=== PATIENT | male | born 1995 | race Caucasian/White ===

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

== ENCOUNTER → 2017-07-14 | Outpatient (CLI) | payer OTHER | END | disposition home or self-care (01) | LOC: C.LAB 18:03 → EDBD 18:03 | DX: Z02.83 Encounter for blood-alcohol and blood-drug test (principal) ==

== ENCOUNTER 2019-05-10 14:55 | Inpatient (IN) ==
[2019-05-10] MEDS ORDERED: FAMOTIDINE 40 MG TABLET PO ONE (15:32)
[2019-05-10 16:08] LABS: Basophils # (auto) 0.05 K/uL (0-0.2); Eosinophils # (auto) 0.09 K/uL (0-0.5); Eosinophils % (auto) 1.8 %; Hematocrit (blood only) 41.8 % (42-52); Hemoglobin 14.6 g/dL (14.0-18.0); Immature Granulocytes # (auto) 0.01 K/uL (0.00-0.02); Immature Granulocytes % (auto) 0.2 %; Lymphocytes # (auto) 1.31 K/uL (1.2-3.4); Lymphocytes % (auto) 25.8 %; Mean Corpuscular Hemoglobin 30.9 pg (25-34); Mean Corpuscular Hgb Conc 34.9 g/dL (32-36); Mean Corpuscular Volume 88.6 fL (80-100); Mean Platelet Volume 12.5 fL (7.4-10.4); Monocytes # (auto) 0.37 K/uL (0.11-0.59); Monocytes % (auto) 7.3 %; Neutrophils # (auto) 3.25 K/uL (1.4-6.5); Neutrophils % (auto) 63.9 %; Platelet Count 180 K/uL (130-400); RDW Coefficient of Variation 16.7 % (11.5-14.5); RDW Standard Deviation 54.6 fL (36.4-46.3); Red Blood Count 4.72 M/uL (4.7-6.1); White Blood Count 5.08 K/uL (4.8-10.8)
[2019-05-10 16:35] LABS: Albumin Globulin Ratio 0.8 (0.9-2); Albumin Level 3.3 gm/dl (3.4-5.0); BUN Creatinine Ratio 20.2 (10-20); Bilirubin,Total 15.8 mg/dl (0.2-1); Calcium 9.4 mg/dl (8.5-10.1); Creatinine Clr Calc Pharmacy 117.1 ml/min; Est GFR (African American) 134.1; Est GFR (Non-African American) 115.7; Globulin 4.1 gm/dl (2.5-4.0); Potassium 3.3 mmol/L (3.5-5.1); Total Protein 7.4 gm/dl (6.4-8.2)
[2019-05-10] MEDS ORDERED: DOXEPIN HCL 25 MG CAPSULE PO STA (17:22)
--- NOTE | 2019-05-10 18:38 | Ultrasound Report ---
US liver CLINICAL HISTORY: t bili elevated abnormal liver function tests COMPARISON STUDY: No previous studies for comparison. FINDINGS: Several gallstones are identified within the gallbladder lumen. Mild gallbladder wall thick ening at 4 mm. Common bile duct measures 5 mm. Liver is uniform. Pancreas and right kidney are unremarkable. No evid ence for renal hydronephrosis. IMPRESSION: Multiple gallstones in a gallbladder with a thickened wall. Normal caliber bile ducts. ACT 112: Negative or not required by law. The above report was generated using voice recognition software. It may contain grammatical, syntax or spelling errors. Electronically signed by: Casey Howard M.D. 05/10/2019 6:37 PM
[2019-05-10 19:06] LABS: INR 1.1 (0.9-1.1); Prothrombin Time 10.9 Seconds (9.0-12.0)
[2019-05-10 19:13] LABS: Magnesium 2.2 mg/dl (1.8-2.4)
[2019-05-10 19:22] LABS: Appearance Urine Clear (Clear); Bacteria Urine Automated Negative (Negative); Blood Urine Negative (Negative); Cast Urine Automated 0 /lpf (0-5); Color Urine Dark Yellow; Epithelial Cell Urine Auto 0-5 /lpf (0-5); Glucose Urine UA Negative (Negative); Ketones Urine Negative (Negative); Leukocyte Esterase Urine Trace (Negative); Nitrite Urine Positive (Negative); Protein Urine Negative (Negative); RBC Urine Automated 0-4 /hpf (0-4); Specific Gravity Urine 1.022 (1.000-1.030); Urobilinogen Urine Negative (Negative); WBC Urine Automated 0 /hpf (0-5); pH Urine 6.5 (4.5-7.5)
--- NOTE | 2019-05-10 19:22 | Emergency Department Note ---
Entered by Shaina Godwin acting as a scribe for Khanh Stokes MD History of Present Illness General Chief complaint: Illness Stated complaint: UNEXPLAINED JAUNDICE,ITCHY ALL OVER,WEAKNESS Time Seen by Provider: 05/10/19 15:16 Source: patient History of Present Illness Onset (ago): month(s) 1 Location: face (jaundice appearance ) Radiation: other (entire body ) Pain Consistency: + constant Associated symptoms: + other (itching all over body, light colored stool, dark urine); no cough, no fever/chills and no nausea/vomiting Treatments prior to arrival: other (Benedryl taken for itching with minor relief ) The patient is a 44 year old white male with a history of hepatitis C, 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 The patient reports that 1 month ago he began to experience jaundice and itching all over his body. He states that he is scratching so much that he is bleeding. He has been taking Benadryl with minor relief. The patient also reports light colored stool and dark urine. He includes that he has not had any recent changes in creams or detergents and has not had any known outdoor bug bites. Additionally, he did not receive his flu shot this year. He follows with a PCP but admits that he never received treatment for hepatitis C since he did not have any symptoms. He also states that he does not take Tylenol. He denies cough, fever, chills, nausea, and vomiting. The patient offers no further concerns at this time. Home Medications Home Medications Medication Instructions Recorded Confirmed Type buprenorphine-naloxone 1 tab SUBLINGUAL BID 05/10/19 05/10/19 History clonazepam 1 mg PO TID PRN 05/10/19 05/10/19 History Allergies Allergy/AdvReac Type Severity Reaction Status Date / Time No Known Allergies Allergy Verified 05/10/19 15:28 Past Med/Surg History Medical History Anxiety Hepatitis C Surgical History No pertinent past surgical history Social History Feels Safe at Home: Yes Smoking Status: Current every day smoker Hx Alcohol Use: No Hx Substance Use: Yes substance use type: marijuana, heroin and opiates Review of Systems See HPI for pertinent positives & negatives. and A total of 10 systems reviewed and were otherwise negative Physical Exam Vital Signs Vital Signs - 24 hr 05/10/19 15:01 05/10/19 16:01 05/10/19 16:02 Temperature 36.6 C Temperature Source Oral Pulse Rate 76 63 57 L Pulse Rate from SpO2 Sensor 62 56 L Respiratory Rate 18 15 15 Respiratory Effort / Characteristics Non-Labored Spontaneous Respiratory Depth Normal Blood Pressure 115/70 Blood Pressure Mean 85 Blood Pressure Position Sitting Pulse Oximetry 94 96 96 Oxygen Delivery Method Room Air Room Air Sepsis Recent Fever Within 48 Hours No Sepsis Action Taken by Nursing No Action Required 05/10/19 16:03 05/10/19 16:04 05/10/19 16:10 Temperature Temperature Source Pulse Rate 62 62 57 L Pulse Rate from SpO2 Sensor 63 62 56 L Respiratory Rate 19 18 16 Respiratory Effort / Characteristics Respiratory Depth Blood Pressure 103/69 Blood Pressure Mean 77 Blood Pressure Position Pulse Oximetry 96 95 93 Oxygen Delivery Method Sepsis Recent Fever Within 48 Hours Sepsis Action Taken by Nursing 05/10/19 16:20 05/10/19 16:30 05/10/19 16:31 Temperature Temperature Source Pulse Rate 52 L 52 L 51 L Pulse Rate from SpO2 Sensor 53 L 51 L 51 L Respiratory Rate 17 14 12 Respiratory Effort / Characteristics Respiratory Depth Blood Pressure 99/57 L Blood Pressure Mean 64 Blood Pressure Position Pulse Oximetry 95 94 95 Oxygen Delivery Method Sepsis Recent Fever Within 48 Hours Sepsis Action Taken by Nursing 05/10/19 16:40 05/10/19 16:50 05/10/19 17:00 Temperature Temperature Source Pulse Rate 48 L 50 L 65 Pulse Rate from SpO2 Sensor 48 L Respiratory Rate 13 14 12 Respiratory Effort / Characteristics Respiratory Depth Blood Pressure 92/60 L Blood Pressure Mean 70 Blood Pressure Position Pulse Oximetry 96 97 Oxygen Delivery Method Sepsis Recent Fever Within 48 Hours Sepsis Action Taken by Nursing 05/10/19 17:01 05/10/19 17:10 05/10/19 17:20 Temperature Temperature Source Pulse Rate 60 61 58 L Pulse Rate from SpO2 Sensor 59 L 58 L Respiratory Rate 14 12 14 Respiratory Effort / Characteristics Respiratory Depth Blood Pressure Blood Pressure Mean Blood Pressure Position Pulse Oximetry 97 97 Oxygen Delivery Method Sepsis Recent Fever Within 48 Hours Sepsis Action Taken by Nursing 05/10/19 17:30 05/10/19 17:40 05/10/19 17:50 Temperature Temperature Source Pulse Rate 59 L 50 L 64 Pulse Rate from SpO2 Sensor Respiratory Rate 14 16 12 Respiratory Effort / Characteristics Respiratory Depth Blood Pressure Blood Pressure Mean Blood Pressure Position Pulse Oximetry Oxygen Delivery Method Sepsis Recent Fever Within 48 Hours Sepsis Action Taken by Nursing 05/10/19 18:00 05/10/19 18:10 05/10/19 18:47 Temperature Temperature Source Pulse Rate 62 47 L 52 L Pulse Rate from SpO2 Sensor 54 L Respiratory Rate 18 16 15 Respiratory Effort / Characteristics Respiratory Depth Blood Pressure Blood Pressure Mean Blood Pressure Position Pulse Oximetry 97 Oxygen Delivery Method Sepsis Recent Fever Within 48 Hours Sepsis Action Taken by Nursing 05/10/19 18:48 05/10/19 18:50 05/10/19 19:10 Temperature Temperature Source Pulse Rate 43 L 54 L 53 L Pulse Rate from SpO2 Sensor 42 L Respiratory Rate 15 17 11 L Respiratory Effort / Characteristics Respiratory Depth Blood Pressure 124/72 Blood Pressure Mean 82 Blood Pressure Position Pulse Oximetry 98 Oxygen Delivery Method Sepsis Recent Fever Within 48 Hours Sepsis Action Taken by Nursing GENERAL: Jaundice in appearance, well nourished, non-toxic. EYE EXAM: Normal conjunctiva. PERRL, no anisocoria and EOM's grossly intact w/o pain. OROPHARYNX: Moist mucus membranes. Grossly normal dentition. NECK: Supple, no nuchal rigidity, no adenopathy, non-tender. no signs of meningismus. LUNGS: Clear to auscultation. Normal chest wall mechanics. HEART: NSR, no MRG. ABDOMEN: Abdomen soft, non-tender, normo-active bowel sounds, no masses, no rebound or guarding. BACK: No CVA TTP. SKIN: No rashes and no bruising. Jaundice appearance. Small well healing scars o n bilateral LE, not cellulitis or purulent. UPPER EXTREMITIES: Upper extremities are grossly normal. LOWER EXTREMITIES: No pitting edema. No calf pain. NEURO EXAM: A&O x3, cranial nerves II-XII grossly intact, normal speech, moves all 4 extremities on command w/o issue. Course Course 1521: Past medical records reviewed. The patient was evaluated in room B05. A complete history and physical exam was performed. 5: The patient was placed on a shrimp cleaner. 1653: I spoke to LUIS Graham who recommends a liver US and admission. The patient will be admitted to [facility]. 1704: I spoke to Selene Cutler from the [facility] admitting team. The patient will be admitted to Dr. Alvarez. 1721: I checked on the patient and updated him. He states he is still very itchy but agrees to stay for admission. The patient verbally expressed understanding and agreement of the treatment plan. The patient will be evaluated for further treatment. Administered Medications Discontinued Medications Doxepin HCl (Sinequan) 25 mg PO NOW STA Stop: 05/10/19 17:23 Last Admin: 05/10/19 17:33 Dose: 25 mg Documented by: [id number] Famotidine (Pepcid) 40 mg PO NOW ONE Stop: 05/10/19 15:33 Last Admin: 05/10/19 15:58 Dose: 40 mg Documented by: [id number] Medical Decision Making Differential Diagnosis Differential diagnosis includes but is not limited to hepatic dysfunction, cholecystitis, primary biliary cirrhosis, alcohol abuse, gallstones. Medical Records Attestation: I reviewed the patient's medical records. Home Medications Current Medication List: was personally reviewed by me Laboratory Data Attestation: I reviewed the patient's lab results. Result diagrams: 05/10/19 15:55 05/10/19 15:55 Lab Results 05/10/19 05/10/19 05/10/19 Range/Units 15:55 15:55 15:55 WBC 5.08 (4.8-10.8) K/uL RBC 4.72 (4.7-6.1) M/uL Hgb 14.6 (14.0-18.0) g/dL Hct 41.8 L (42-52) % MCV 88.6 (80-100) fL MCH 30.9 (25-34) pg MCHC 34.9 (32-36) g/dL RDW Std Deviation 54.6 H (36.4-46.3) fL RDW Coeff of Eugenia 16.7 H (11.5-14.5) % Plt Count 180 (130-400) K/uL MPV 12.5 H (7.4-10.4) fL Immature Gran % (Auto) 0.2 % Neut % (Auto) 63.9 % Lymph % (Auto) 25.8 % Dickinson % (Auto) 7.3 % Eos % (Auto) 1.8 % Baso % (Auto) 1.0 % Immature Gran # (Auto) 0.01 (0.00-0.02) K/uL Neut # (Auto) 3.25 (1.4-6.5) K/uL Lymph # (Auto) 1.31 (1.2-3.4) K/uL Dickinson # (Auto) 0.37 (0.11-0.59) K/uL Eos # (Auto) 0.09 (0-0.5) K/uL Baso # (Auto) 0.05 (0-0.2) K/uL PT (9.0-12.0) Seconds INR (0.9-1.1) Sodium 140 (136-145) mmol/L Potassium 3.3 L (3.5-5.1) mmol/L Chloride 104 (98-107) mmol/L Carbon Dioxide 31 (21-32) mmol/L Anion Gap 5.0 (3-11) BUN 14 (7-18) mg/dl Creatinine 0.71 (0.6-1.4) mg/dl Est Cr Clr Drug Dosing 117.1 ml/min Est GFR ( Amer) 134.1 Est GFR (Non-Af Amer) 115.7 BUN/Creatinine Ratio 20.2 H (10-20) Glucose 86 (70-99) mg/dl Calcium 9.4 (8.5-10.1) mg/dl Magnesium 2.2 (1.8-2.4) mg/dl Total Bilirubin 15.8 H (0.2-1) mg/dl AST 457 H (15-37) U/L ALT 287 H (12-78) U/L Alkaline Phosphatase 140 H (45-117) U/L Ammonia (11-32) umol/L Total Protein 7.4 (6.4-8.2) gm/dl Albumin 3.3 L (3.4-5.0) gm/dl Globulin 4.1 H (2.5-4.0) gm/dl Albumin/Globulin Ratio 0.8 L (0.9-2) Lipase 223 (73-393) U/L Acetaminophen Ethyl Alcohol mg/dL (0-3) mg/dl Hepatitis C Antibody Prelim Pos A (Neg) HCV RNA Qual (TMA) 0105/10/19 05/10/19 Range/Units 15:55 15:55 15:55 WBC (4.8-10.8) K/uL RBC (4.7-6.1) M/uL Hgb (14.0-18.0) g/dL Hct (42-52) % MCV (80-100) fL MCH (25-34) pg MCHC (32-36) g/dL RDW Std Deviation (36.4-46.3) fL RDW Coeff of Eugenia (11.5-14.5) % Plt Count (130-400) K/uL MPV (7.4-10.4) fL Immature Gran % (Auto) % Neut % (Auto) % Lymph % (Auto) % Dickinson % (Auto) % Eos % (Auto) % Baso % (Auto) % Immature Gran # (Auto) (0.00-0.02) K/uL Neut # (Auto) (1.4-6.5) K/uL Lymph # (Auto) (1.2-3.4) K/uL Dickinson # (Auto) (0.11-0.59) K/uL Eos # (Auto) (0-0.5) K/uL Baso # (Auto) (0-0.2) K/uL PT (9.0-12.0) Seconds INR (0.9-1.1) Sodium (136-145) mmol/L Potassium (3.5-5.1) mmol/L Chloride (98-107) mmol/L Carbon Dioxide (21-32) mmol/L Anion Gap (3-11) BUN (7-18) mg/dl Creatinine (0.6-1.4) mg/dl Est Cr Clr Drug Dosing ml/min Est GFR ( Amer) Est GFR (Non-Af Amer) BUN/Creatinine Ratio (10-20) Glucose (70-99) mg/dl Calcium (8.5-10.1) mg/dl Magnesium (1.8-2.4) mg/dl Total Bilirubin (0.2-1) mg/dl AST (15-37) U/L ALT (12-78) U/L Alkaline Phosphatase (45-117) U/L Ammonia 18.1 (11-32) umol/L Total Protein (6.4-8.2) gm/dl Albumin (3.4-5.0) gm/dl Globulin (2.5-4.0) gm/dl Albumin/Globulin Ratio (0.9-2) Lipase (73-393) U/L Acetaminophen Cancelled Ethyl Alcohol mg/dL < 3.0 (0-3) mg/dl Hepatitis C Antibody (Neg) HCV RNA Qual (TMA) 05/10/19 05/10/19 05/10/19 Range/Units 15:55 15:55 15:55 WBC (4.8-10.8) K/uL RBC (4.7-6.1) M/uL Hgb (14.0-18.0) g/dL Hct (42-52) % MCV (80-100) fL MCH (25-34) pg MCHC (32-36) g/dL RDW Std Deviation (36.4-46.3) fL RDW Coeff of Eugenia (11.5-14.5) % Plt Count (130-400) K/uL MPV (7.4-10.4) fL Immature Gran % (Auto) % Neut % (Auto) % Lymph % (Auto) % Dickinson % (Auto) % Eos % (Auto) % Baso % (Auto) % Immature Gran # (Auto) (0.00-0.02) K/uL Neut # (Auto) (1.4-6.5) K/uL Lymph # (Auto) (1.2-3.4) K/uL Dickinson # (Auto) (0.11-0.59) K/uL Eos # (Auto) (0-0.5) K/uL Baso # (Auto) (0-0.2) K/uL PT 10.9 (9.0-12.0) Seconds INR 1.1 (0.9-1.1) Sodium (136-145) mmol/L Potassium (3.5-5.1) mmol/L Chloride (98-107) mmol/L Carbon Dioxide (21-32) mmol/L Anion Gap (3-11) BUN (7-18) mg/dl Creatinine (0.6-1.4) mg/dl Est Cr Clr Drug Dosing ml/min Est GFR ( Amer) Est GFR (Non-Af Amer) BUN/Creatinine Ratio (10-20) Glucose (70-99) mg/dl Calcium (8.5-10.1) mg/dl Magnesium Cancelled (1.8-2.4) mg/dl Total Bilirubin (0.2-1) mg/dl AST (15-37) U/L ALT (12-78) U/L Alkaline Phosphatase (45-117) U/L Ammonia (11-32) umol/L Total Protein (6.4-8.2) gm/dl Albumin (3.4-5.0) gm/dl Globulin (2.5-4.0) gm/dl Albumin/Globulin Ratio (0.9-2) Lipase (73-393) U/L Acetaminophen Ethyl Alcohol mg/dL (0-3) mg/dl Hepatitis C Antibody (Neg) HCV RNA Qual (TMA) Cancelled Imaging Data Radiologist's Impression: Radiology results as stated below per my review and the radiologist's interpretation: US liver CLINICAL HISTORY: t bili elevated abnormal liver function tests COMPARISON STUDY: No previous studies for comparison. FINDINGS: Several gallstones are identified within the gallbladder lumen. Mild gallbladder wall thickening at 4 mm. Common bile duct measures 5 mm. Liver is uniform. Pancreas and right kidney are unremarkable. No evidence for renal hydronephrosis. IMPRESSION: Multiple gallstones in a gallbladder with a thickened wall. Normal caliber bile ducts. ACT 112: Negative or not required by law. The above report was generated using voice recognition software. It may contain grammatical, syntax or spelling errors. Electronically signed by: Casey Howard M.D. 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 Patient was seen and evaluated the bedside. The patient did present with worsening jaundice and itchiness. The patient is a prior history of hep C but without any flares and the patient did not have any curative treatment. The patient is a prior history of IV drug abuse but is not used in approximately 12 years. The patient is jaundiced at the bedside. He does state that he has had the itchiness which I believe is likely related to his jaundice and may have some element of cholestasis may be causing his itchiness. The patient did a blood work completed along with hep C studies as well as Tylenol, alcohol, and ammonia levels. Patient does have an elevated T bili AST and ALT. No anemia white blood cell count is within normal limits. Normal kidney function. Lipase is normal. Patient has no pain. I did speak with on-call GI who recommended liver ultrasound. I did speak the on-call hospitalist agreed to further evaluate treat the patient. Patient was subsequently admitted to the medicine service. Ultrasound was reviewed after the patient had been admitted. There are gallstones and mild gallbladder wall thickening with normal CBD. Additional management was deferred to the inpatient team. The patient had no pain on my exam. I counseled patient on smoking cessation for 3 minutes. Treatment options discussed and resources provided. Patient was receptive. Impression & Plan Hyperbilirubinemia, Hepatitis C, Gallstones, Hypokalemia, Pruritus, Encounter for smoking cessation counseling Discharge Plan Visit Data Chief Complaint: Illness Stated Complaint: UNEXPLAINED JAUNDICE,ITCHY ALL OVER,WEAKNESS ED Provider: Khanh Stokes Discharge Problem: Hyperbilirubinemia, Hepatitis C, Gallstones, Hypokalemia, Pruritus, Encounter for smoking cessation counseling Patient Disposition: Being Evaluated by Hospitalist Forms Stand Alone Forms: My [facility] [employer] [facility] Prescriptions Prescriptions: No Action clonazepam 1 mg Tablet 1 mg PO TID PRN (Reason: Itchiness/Anxiety) RF: 0 buprenorphine-naloxone 8-2 mg tablet, sublingual 1 tab SUBLINGUAL BID RF: 0 Referrals Referrals: Jean Carlos Valencia MD [Primary Care Provider] - Discharge Problem: Hepatitis C Qualifiers: Viral hepatitis chronicity: chronic Hepatic coma status: without hepatic coma Qualified Code(s): B18.2 - Chronic viral hepatitis C The scribe's documentation has been prepared under my direction and personally reviewed by me in its entirety. I confirm that the note above accurately reflects all work, treatment, procedures, and medical decision making performed by me.
[2019-05-10 19:25] LABS: Bilirubin Urine 3+ (Negative); Ictotest Urine Positive (Negative)
--- NOTE | 2019-05-10 20:36 | History & Physical Report ---
Date of Service May 10, 2019 Assessment & Plan (1) Transaminitis: (2) Jaundice: (3) Hepatitis C: -Admit to [facility] -Patient presenting from home for evaluation of worsening painless jaundice -In the ED, found to have transaminitis with total bili 15.8, AST 457, ALT 287, alk phos 140 -History of hepatitis C diagnosed ~15 years ago, declined treatment -Denies alcohol use, no heavy Tylenol use; up until 1 year ago, was using testosterone cypionate injections which could have potential liver toxicity side effect; currently taking Moringa leaf and carbon 60 supplements -these do not appear to have any liver side effects listed -Liver ultrasound obtained, no signs of cirrhosis however multiple gallstones noted within the gallbladder -MRI pancreas and MRCP ordered -Hepatitis C antibody positive, checking HCV RNA -N.p.o. after midnight for any possible procedures -GI consult, case discussed with LUIS Graham (4) History of drug abuse in remission: -Continue Suboxone (5) Anxiety: -Continue clonazepam (6) DVT prophylaxis: -SCDs History of Present Illness Chief Complaint: Jaundice, itching Primary Care Provider: Jean Carlos Valencia MD 44-year-old male who presents the ED for evaluation of jaundice and itching. Patient reports being diagnosed with hepatitis C about 15 years ago however has never received treatment. Former history of heroin use (~ 12 years ago), now managed on Suboxone. Patient reports that 1 month ago a friend of his told him that he did not look well and appeared yellow. Patient reports the yellowing and skin itchiness has been progressively getting worse. He notes a 20 pound unintentional weight loss over the past 2 months. His stools have been white in color and urine has been dark, tea colored. Patient denies abdominal pain, nausea, vomiting, diarrhea. He does report increasing fatigue. Up until a year ago, patient was taking testosterone cypionate injections. Patient also admits to taking moringa leaf, vitamin C, and carbon 60 supplements. Patient denies chest pain shortness of breath. No lightheadedness, dizziness, diaphoresis, syncopal events. Denies fevers and chills. No urinary symptoms. In the ED, patient is found to have transaminitis with total bili 15.8, AST 457, ALT 287, alk phos 140. He is hemodynamically stable. Patient was given famotidine and doxepin. Allergies Allergy/AdvReac Type Severity Reaction Status Date / Time No Known Allergies Allergy Verified 05/10/19 15:28 Home Medications Home Medications Medication Instructions Recorded Confirmed Type buprenorphine-naloxone 1 tab SUBLINGUAL BID 05/10/19 05/10/19 History clonazepam 1 mg PO TID PRN 05/10/19 05/10/19 History Past Med/Surg History Medical History (Updated 05/12/19 @ 14:49 by Ming Bell, DO) Anxiety Hepatitis C History of drug abuse in remission Surgical History S/P colonoscopy with polypectomy Family History Mother Breast cancer Social History Preferred Language: Wolof Communication Ability: Effective [employer] Required: No Beliefs That Will Affect Care: None Current Living Situation: Family Current Living Situation Comment: alone with son Other Information That Helps Us Care for You: No Feels Safe at Home: Yes Safety Concerns: Feels Safe At This Time Smoking Status: Current every day smoker Tobacco Type: cigarettes ; Cigarettes Per Day: 3 ; Do You Dip or Chew Tobacco: No ; Tobacco Cessation Education Requested by Patient: No Hx Alcohol Use: No Hx Substance Use: Yes substance use type: marijuana Last Used Substance: Days (ago) Last Used Substance Other:: a week ago Review of Systems Review of Systems: ROS per HPI, all other systems reviewed and negative Physical Exam Constitutional: + thin Chronically ill-appearing with bitemporal wasting Eyes: PERRL; no conjunctival abnormality and sclerae not anicteric ENMT: external ear and nose normal, oropharynx normal Respiratory: normal respiratory effort, lungs clear to auscultation Cardiovascular: Rate/Rhythm: regular rate and regular rhythm Vessels: normal peripheral pulses Extremities: no edema Gastrointestinal (Abdomen): normal bowel sounds, soft, nontender, no hepatosplenomegaly Musculoskeletal: no cyanosis or clubbing, extremities motor strength 5/5 Skin: no rashes, warm and dry + jaundice Trauma: + abrasion (Various scattered superficial abrasions noted over body from persistent itching) Neurologic: PERRL, EOMI, accommodation nl, no face palsy, no dysarthria Psychiatric: A+Ox3, euthymic affect Results & Data Vital Signs (Past 12 Hours) Vital Signs Temp Pulse Resp BP Pulse Ox 05/10/19 20:01 55 L 12 05/10/19 20:00 45 L 14 117/72 05/10/19 19:50 60 13 05/10/19 19:40 48 L 16 05/10/19 19:31 48 L 16 05/10/19 19:30 48 L 15 114/75 05/10/19 19:20 46 L 18 05/10/19 19:10 53 L 11 L 05/10/19 18:50 54 L 17 05/10/19 18:48 43 L 15 124/72 98 05/10/19 18:47 52 L 15 97 05/10/19 18:10 47 L 16 05/10/19 18:00 62 18 05/10/19 17:50 64 12 05/10/19 17:40 50 L 16 05/10/19 17:30 59 L 14 05/10/19 17:20 58 L 14 97 05/10/19 17:10 61 12 97 05/10/19 17:01 60 14 05/10/19 17:00 65 12 92/60 L 97 05/10/19 16:50 50 L 14 05/10/19 16:40 48 L 13 96 05/10/19 16:31 51 L 12 95 05/10/19 16:30 52 L 14 99/57 L 94 05/10/19 16:20 52 L 17 95 05/10/19 16:10 57 L 16 93 05/10/19 16:04 62 18 95 05/10/19 16:03 62 19 103/69 96 05/10/19 16:02 57 L 15 96 05/10/19 16:01 63 15 96 05/10/19 15:01 36.6 C 76 18 115/70 94 Laboratory Results Short CBC 05/10/19 Range/Units 15:55 WBC 5.08 (4.8-10.8) K/uL Hgb 14.6 (14.0-18.0) g/dL Hct 41.8 L (42-52) % Plt Count 180 (130-400) K/uL BMP 05/10/19 15:55 Sodium 140 Potassium 3.3 L Chloride 104 Carbon Dioxide 31 BUN 14 Creatinine 0.71 Glucose 86 Calcium 9.4 Liver Function 05/10/19 Range/Units 15:55 Total Bilirubin 15.8 H (0.2-1) mg/dl AST 457 H (15-37) U/L ALT 287 H (12-78) U/L Alkaline Phosphatase 140 H (45-117) U/L Albumin 3.3 L (3.4-5.0) gm/dl Urine 05/10/19 Range/Units 19:11 Urine Color Dark Yellow Urine Appearance Clear (Clear) Urine pH 6.5 (4.5-7.5) Ur Specific [place] 1.022 (1.000-1.030) Urine Protein Negative (Negative) Urine Glucose (UA) Negative (Negative) Diagnostic Findings LIVER ULTRASOUND IMPRESSION: Multiple gallstones in a gallbladder with a thickened wall. Normal caliber bile ducts. Code Status & VTE Plan VTE Prophylaxis Plan VTE Prophylaxis will be ordered: Yes Supervising Physician Co-Signing Physician Notes Pt was seen and examined. Agreed with Selene SMITH exam, assessment and plan. 44 yo male with PMH of HCV, heroine abuse in the past, present to the ER with jaundice and pruritis. Pt said that few weeks ago his friend was very concerned about him because he looked very yellow. He said that he has not been feeling well in the last few days and he said that his pruritis and yellowish has been getting worst. Pt said that he was diagnosed with HCV about 15 yrs ago and he has not been follow with PCP to monitor his liver enzymes. He said that he has been taking supplements to help with his energy. LFT on admission showed AST 457, ALT 287 and ALK 140. Liver u/s showed multiple gallstones in a gallbladder with a thickened wall with Normal caliber bile ducts. Gastro consulted recommended to get a MRI of the Liver. Will monitor liver function. Will avoid hepatotoxic agents. Will make NPO after midnight in case if pt will need any procedure. Will continue monitor closely. MD Alejandra (1) Hepatitis C Hepatic coma status: without hepatic coma Viral hepatitis chronicity: chronic Qualified Code(s): B18.2 - Chronic viral hepatitis C
[2019-05-10] MEDS ORDERED: DOXEPIN HCL 25 MG CAPSULE PO SCH (21:00)
[2019-05-10] MEDS ORDERED: POTASSIUM CHLORIDE 20 MEQ TABCR PO ONE (21:02)
[2019-05-10] MEDS ORDERED: IBUPROFEN 600 MG TAB PO ONE (21:17)
[2019-05-10] MEDS ORDERED: GADOBUTROL 65ML VIAL IV PRN (22:39)
[2019-05-10] MEDS: BUPRENORPHINE/NALOXONE 8/2 MG TAB SL SCH (22:56)
--- NOTE | 2019-05-10 22:57 | Magnetic Resonance Report ---
MR abdomen wo/w con CLINICAL HISTORY: Elevated liver f factors. Abnormal liver function tests. COMPARISON STUDY: Liver ultrasound same date. TECHNIQUE: MRI of the abdomen is performed transverse T1 and T2-weighted sequences in the axial and c oronal planes. Contrast enhanced sequences were acquired following the IV administration of 6 cc of Urovist. FINDINGS: Lower chest: No pleural effusion is identified. The heart is normal in size. Liver: The liver is uniform. No hepatic ductal distention. Gallbladder: Gallstone filled. Minimal pericholecystic edema if any. Normal caliber bile ducts. No abnormal postcontrast enhancement. No significant space-occupying lesions. Spleen: Normal in size and signal intensity. Pancreas: Unremarkable. Adrenal glands: Unremarkable. Kidneys: The kidneys are normal in size and without hydronephrosis. The kidneys enhance and excrete s ymmetrically. Bowel: Mild nonspecific enteritis. This may be reactive. No evidence for obstructive pattern. Peritoneum: Several small reactive mesenteric nodes Lymphadenopathy: Several nonspecific para-aortic as well as retroperitoneal nodes Skeletal structures: Visualized skeletal structures times are normal marrow signal intensity. IMPRESSION: 1. Unremarkable liver and spleen. 2. No abnormal postcontrast enhancement. 3. Gallstone filled gallbladder with a trace of pericholecystic edema. 4. Mild small bowel enteritis. 5. Several small reactive mesenteric as well as retroperitoneal/para-aortic nodes. 6. Nonobstructive bowel pattern. ACT 112: Negative or not required by law. The above report was generated using voice recognition software. It may contain grammatical, syntax or spelling errors. Electronically signed by: Casey Howard M.D. 05/10/2019 10:55 PM
[2019-05-11] MEDS: clonazePAM 1 MG TAB PO PRN ×2 (00:23→16:32)
[2019-05-11 06:31] LABS: Mean Corpuscular Hgb Conc 34.5 g/dL (32-36)
[2019-05-11 06:37] LABS: Hemoglobin 13.1 g/dL (14.0-18.0); RDW Coefficient of Variation 16.7 % (11.5-14.5); RDW Standard Deviation 53.3 fL (36.4-46.3); Red Blood Count 4.37 M/uL (4.7-6.1); White Blood Count 4.91 K/uL (4.8-10.8)
[2019-05-11 06:56] LABS: Mean Platelet Volume 12.7 fL (7.4-10.4); Platelet Count 144 K/uL (130-400)
[2019-05-11 06:57] LABS: Platelet Estimate Decreased (Normal)
[2019-05-11 07:14] LABS: Albumin Globulin Ratio 0.8 (0.9-2); Albumin Level 2.6 gm/dl (3.4-5.0); BUN Creatinine Ratio 26.5 (10-20); Bilirubin,Total 13.3 mg/dl (0.2-1); Creatinine Clr Calc Pharmacy 122.7 ml/min; Est GFR (African American) 138.2; Est GFR (Non-African American) 119.3; Globulin 3.4 gm/dl (2.5-4.0); Potassium 3.9 mmol/L (3.5-5.1)
[2019-05-11] MEDS ORDERED: D5W AND NSS 1,000 ML IV SCH (08:30)
[2019-05-11] MEDS: BUPRENORPHINE/NALOXONE 8/2 MG TAB SL SCH ×2 (08:36→20:07)
--- NOTE | 2019-05-11 11:30 | Gastrointestinal Consultation ---
Date of Consultation May 11, 2019 Assessment & Plan (1) Jaundice: Elevated LFTs, in the absence of significant imaging abnormalities most likely represents drug-induced liver injury from the self compounded and self injected testosterone. The timing corresponds with this, with the worst jaundice being approximately 3 weeks ago and with improvement since discontinuation (according to patient report) Plan: EUS is planned today however despite being instructed to remain strict n.p.o., the patient was witnessed to be eating potato chips. EUS had to be canceled. 1. We will check for other causes of liver injury such as autoimmune liver disease, CMV, parvovirus, Casey-Ritchie. 2. We will check hep C quantitative, as well as screening for hepatitis A and hepatitis B. HIV is negative. 3. Because we are unable to do endoscopy today there is no GI contraindication to a regular diet. 4. Continue to follow LFTs. If improvement, then could be DC'ed and follow with OP GI f/u for further dx of the jaundice and for tx of HCV. Present on Admission?: Yes (2) Hepatitis C: HCV quantitative and OP f/u for tx. Present on Admission?: Yes Supervising Physician Co-Signing Physician Notes I saw and evaluated the patient. The patient is a poor historian but presented to the emergency room with fatigue and jaundice. He notes that he has been having the symptoms for approximately 6 weeks. He denies having nausea vomiting or abdominal discomfort. Imaging study did show evidence of cholelithiasis without a dilation of his common bile duct more choledocholithiasis. The patient does have a history of IV drug abuse and has a diagnosis of hepatitis C for which she is never had therapy. The patient does not recall ever having a prior liver biopsy performed. He does note that he has been using an anabolic steroid which he has been getting through a provider in [place] over several years. [place] on the patient's prescription he injects this medication and it is marketed as a type of testosterone. Physical examination No obvious distress Scleral icterus noted No asterixis Impression: Patient with evidence of jaundice and perhaps cholestatic liver disease given the liver enzyme pattern. I wonder if this may be related to his ongoing supplement use or perhaps his hepatitis C. Ideally we would have performed an endoscopic ultrasound to evaluate his bile duct to ensure that he did not have evidence of choledocholithiasis. Unfortunately, despite us telling the patient not to eat he decided to eat potato chips prior to his procedure. Therefore the procedure was canceled for this weekend and we can certainly evaluate next week should he not improve. Recommendations Stop all supplements Continue with IV hydration Viral serologies to be ordered to include HCV, EBV, CMV, HAV, and HBV Autoimmune serologies: THELMA and IgG Ceruloplasmin iron panel / ferritin History of Present Illness Reason for Consultation: elevated LFTs Requesting Physician: Lo Cutler NP/Dr. Coleman Attending Physician: Jordan Coleman MD History of Present Illness Ms. Wolf Naik is a 44-year-old male patient of Dr. Gonzalez who presented to the emergency department yesterday for jaundice, weakness fatigue and pruritus. On arrival, total bilirubin 15, AST 457, ALT 287, alkaline Davey 140 lipase 223. RUQ ultrasound and MRI/MRCP shows gallstones but no significant gallbladder wall thickening, no biliary ductal dilation and no liver or pancreas abnormalities. He has a history of IV drug drug use from which he contracted hepatitis C (never treated) and has been "clean," and on Suboxone for approximately 12 years. He patient admits to using testosterone which he obtained in powder form from [place], crushed and liquefied in grapeseed oil been self injected intramuscularly. He had done this regularly though stopped about a year ago but did it again 3 times, once weekly approximately 2 months ago. He developed jaundice and icterus and stopped because of this at the time of his third self injection approximately 1 month ago. He tells us that his yellow skin and eyes has improved since the time of that third injection. He reports taking the testosterone because he feels so lethargic, and that he has felt this way for approximately 2 years. He denies any abdominal pain nausea vomiting. He did have very light-colored stools around the time of the maximum jaundice a month ago. He denies any viral symptoms such as fevers, sweats nausea vomiting or diarrhea. He did mention having a low body temperature on one occasion this week. He denies any history of increased alcohol intake and denies any recent alcohol ingestion. No recent tylenol or antibiotic use. No sick contacts. Allergies Allergy/AdvReac Type Severity Reaction Status Date / Time No Known Allergies Allergy Verified 05/10/19 15:28 Home Medications Home Medications Medication Instructions Recorded Confirmed Type buprenorphine-naloxone 1 tab SUBLINGUAL BID 05/10/19 05/10/19 History clonazepam 1 mg PO TID PRN 05/10/19 05/10/19 History Patient History Medical History (Updated 05/10/19 @ 20:51 by LUIS Matute) Anxiety Hepatitis C History of drug abuse in remission Surgical History S/P colonoscopy with polypectomy Family History Mother Breast cancer Social History Preferred Language: Yakut Communication Ability: Effective [place] [employer]our Required: No Beliefs That Will Affect Care: None Current Living Situation: Family Current Living Situation Comment: alone with son Other Information That Helps Us Care for You: No Feels Safe at Home: Yes Safety Concerns: Feels Safe At This Time Smoking Status: Current every day smoker Tobacco Type: cigarettes ; Cigarettes Per Day: 3 ; Do You Dip or Chew Tobacco: No ; Tobacco Cessation Education Requested by Patient: No Hx Alcohol Use: No Hx Substance Use: Yes substance use type: marijuana Last Used Substance: Days (ago) Last Used Substance Other:: a week ago Review of Systems Review of Systems: ROS: Gen: +weakness/fatigue. + reports a 20lbs weight loss in the past month. No fevers, weight loss Eyes: + icterus x 1 months No eye redness, or pain, no recent vision changes Resp: No SOB, no cough Cardio: No palpitations/irregular beats, no chest pain GI: + light stools No abdominal pain, no nausea/vomiting : Denies pain on urination Skin: No jaundice, itching or new rashes Physical Exam Constitutional: WD/WN, vitals as above + ill appearing and + thin (very); no acute distress temporal wasting Eyes: PERRL + icteric ENMT: external ear and nose normal, oropharynx normal Neck: trachea midline, no thyromegaly Respiratory: normal respiratory effort, lungs clear to auscultation Cardiovascular: RRR, no murmur, no edema Gastrointestinal (Abdomen): normal bowel sounds, soft, nontender, no hepatosplenomegaly Skin: + jaundice (evidence of excoriation) Neurologic: PERRL, EOMI, accommodation nl, no face palsy, no dysarthria Psychiatric: Orientation: alert and oriented x 3 Affect: + anxious affect Lymphatic: no cervical or axillary lymphadenopathy Results & Data Vital Signs (Past 12 Hours) Vital Signs Temp Pulse Resp BP Pulse Ox 05/11/19 07:14 36.7 C 45 L 16 115/74 96 Laboratory Results T Bili 15, AST 457, ALT 287, ALk phos 140, lipase 223, WBC 4, Hb 13, Hct 38, platelets 180, INR 1.1, Na 140, K 3.3, BUN 14, Cr 0.7. Diagnostic Findings Liver US 05/10/18: Several gallstones are identified within the gallbladder lumen. Mild gallbladder wall thickening at 4 mm. Common bile duct measures 5 mm. Liver is uniform. Pancreas and right kidney are unremarkable. No evidence for renal hydronephrosis. MRI pancreas/MRCP: 1. Unremarkable liver and spleen. 2. No abnormal postcontrast enhancement. 3. Gallstone filled gallbladder with a trace of pericholecystic edema. 4. Mild small bowel enteritis. 5. Several small reactive mesenteric as well as retroperitoneal/para-aortic nodes. 6. Nonobstructive bowel pattern. (1) Hepatitis C Hepatic coma status: without hepatic coma Viral hepatitis chronicity: chronic Qualified Code(s): B18.2 - Chronic viral hepatitis C
[2019-05-11 13:12] LABS: Hepatitis B Surface Ab Quant 12.89 mIU/mL (>or=10mIU/mL Immune); Hepatitis B Surface Antibody Immune
[2019-05-11 13:15] LABS: Hepatitis B Surface Antigen Neg (Neg)
[2019-05-11] MEDS: SODIUM CHLORIDE 0.9% 1000ML 1,000 ML IV SCH (16:30)
--- NOTE | 2019-05-11 16:30 | Hospitalist Progress Note ---
Date of Service May 11, 2019 Assessment & Plan (1) Transaminitis: (2) Jaundice: (3) Hepatitis C: Per admitting service notes -Patient presenting from home for evaluation of worsening painless jaundice -In the ED, found to have transaminitis with total bili 15.8, AST 457, ALT 287, alk phos 140 -History of hepatitis C diagnosed ~15 years ago, declined treatment -Denies alcohol use, no heavy Tylenol use; up until 1 year ago, was using testosterone cypionate injections which could have potential liver toxicity side effect; currently taking Moringa leaf and carbon 60 supplements -these do not appear to have any liver side effects listed -Liver ultrasound obtained, no signs of cirrhosis however multiple gallstones noted within the gallbladder 05/11/2019 ERCP canceled as patient had eaten earlier today Total bilirubin slightly decreased from 15-13 AST ALT about the same, alk phos normal Elevated bilirubin and felt to be secondary to exogenous testosterone Will continue to monitor trend, if without improvement, plan for ERCP next week Ordered Zyrtec for pruritus Continue to monitor closely (4) History of drug abuse in remission: -Continue Suboxone (5) Anxiety: -Continue clonazepam (6) DVT prophylaxis: -SCDs Case discussed with patient in detail and at length He is frustrated with the plan procedure was canceled today, he said " it is probably because of my insurance" Explained to him risks of undergoing procedure if one has eaten including aspiration, respiratory arrest, pneumonitis All questions answered, patient is understanding, agreeable, comfortable plan of care Subjective Follow-up for jaundice Seen sitting up in bed, comfortable, having his meal Denies abdominal pain, nausea, fevers or chills Shortness of breath, chest pain, dizziness Reports generalized pruritus No other symptoms Review of Systems Review of Systems: All systems reviewed & are unremarkable except as noted in HPI & below Physical Exam Physical Exam: General- oriented x 3, not in distress, speaks in sentences with no effort or accessory muscle use Somewhat weak Head- atraumatic Eyes- PERRL, EOMI, positive icterus ENT- oropharynx clear Neck- supple, no JVD, no adenopathy, no thyromegaly; carotids +2/2, no bruits appreciated Lungs- clear to auscultation bilaterally, no rales/wheezes Heart- normal rate, regular rhythm; no murmur, no gallop, no rub appreciated Abdomen- normal bowel sounds, nondistended, soft, nontender, no masses or hepatosplenomegaly Extremities- no pretibial edema, no calf tenderness; peripheral pulses intact Neuro- alert, oriented x 3; CN 2-12 grossly intact; motor 5/5 bilaterally;sensation 100% on all extremities; no other gross focal neurologic deficits Skin-positive jaundice, warm & dry Results & Data Vital Signs (Past 12 Hours) Vital Signs Temp Pulse Resp BP Pulse Ox 05/11/19 15:02 36.6 C 70 17 102/68 96 05/11/19 07:14 36.7 C 45 L 16 115/74 96 Laboratory Results Laboratory Results - last 24 hr 05/11/19 05/11/19 05/11/19 05:53 05:53 12:06 WBC 4.91 RBC 4.37 L Hgb 13.1 L Hct 38.0 L MCV 87.0 MCH 30.0 MCHC 34.5 RDW Std Deviation 53.3 H RDW Coeff of Eugenia 16.7 H Plt Count 144 MPV 12.7 H Platelet Estimate Decreased L Sodium 142 Potassium 3.9 D Chloride 109 H Carbon Dioxide 30 Anion Gap 4.0 BUN 18 Creatinine 0.66 Est Cr Clr Drug Dosing 122.7 Est GFR ( Amer) 138.2 Est GFR (Non-Af Amer) 119.3 BUN/Creatinine Ratio 26.5 H Glucose 92 Calcium 9.0 Total Bilirubin 13.3 H AST 421 H ALT 273 H Alkaline Phosphatase 112 Total Protein 6.0 L Albumin 2.6 L Globulin 3.4 Albumin/Globulin Ratio 0.8 L THELMA Screen Anti-Smooth Muscle Ab CMV IgM Ab EBV Capsid Ag IgG Ab EBV Capsid Ag IgM Ab EBV Nuclear Antigen Ab EBV Antibody Interp Hepatitis A IgM Ab Hep Bs Antigen Neg Hep Bs Antibody Immune Hep Bs Antibody, Quant 12.89 Hep B Core IgM Ab HCV RNA (PCR) IUs/ml HCV RNA PCR log IUs/ml Parvovirus IgG Ab Index Parvovirus IgM Ab Index 05/11/19 05/11/19 12:06 12:06 WBC RBC Hgb Hct MCV MCH MCHC RDW Std Deviation RDW Coeff of Eugenia Plt Count MPV Platelet Estimate Sodium Potassium Chloride Carbon Dioxide Anion Gap BUN Creatinine Est Cr Clr Drug Dosing Est GFR ( Amer) Est GFR (Non-Af Amer) BUN/Creatinine Ratio Glucose Calcium Total Bilirubin AST ALT Alkaline Phosphatase Total Protein Albumin Globulin Albumin/Globulin Ratio THELMA Screen Pending Anti-Smooth Muscle Ab Pending CMV IgM Ab Pending EBV Capsid Ag IgG Ab Pending EBV Capsid Ag IgM Ab Pending EBV Nuclear Antigen Ab Pending EBV Antibody Interp Pending Hepatitis A IgM Ab Pending Hep Bs Antigen Hep Bs Antibody Hep Bs Antibody, Quant Hep B Core IgM Ab Pending HCV RNA (PCR) IUs/ml Pending HCV RNA PCR log IUs/ml Pending Parvovirus IgG Ab Index Pending Parvovirus IgM Ab Index Pending (1) Hepatitis C Hepatic coma status: without hepatic coma Viral hepatitis chronicity: chronic Qualified Code(s): B18.2 - Chronic viral hepatitis C
[2019-05-11] MEDS: CETIRIZINE HCL 10 MG TABLET PO PRN (18:44)
[2019-05-12] MEDS: clonazePAM 1 MG TAB PO PRN (00:26)
[2019-05-12] MEDS: SODIUM CHLORIDE 0.9% 1000ML 1,000 ML IV SCH ×3 (01:54→21:40)
[2019-05-12] MEDS: BUPRENORPHINE/NALOXONE 8/2 MG TAB SL SCH ×2 (09:10→21:16)
[2019-05-12] MEDS: CETIRIZINE HCL 10 MG TABLET PO PRN (09:10)
[2019-05-12 10:25] LABS: Albumin Level 2.7 gm/dl (3.4-5.0); BUN Creatinine Ratio 20.9 (10-20); Bilirubin,Total 14.5 mg/dl (0.2-1); Calcium 8.6 mg/dl (8.5-10.1); Creatinine Clr Calc Pharmacy 120.9 ml/min; Est GFR (African American) 137.4; Est GFR (Non-African American) 118.5; Potassium 3.6 mmol/L (3.5-5.1); Total Protein 5.9 gm/dl (6.4-8.2)
[2019-05-12 11:03] LABS: Bilirubin Direct 12.1 mg/dl (0-0.2)
--- NOTE | 2019-05-12 14:51 | Gastroenterology Progress Note ---
Date of Service May 12, 2019 Assessment & Plan (1) Hepatitis C: (2) Transaminitis: (3) Jaundice: (4) History of drug abuse in remission: (5) Drug induced liver disease: Broad differential diagnosis, as to the cause of his Acute liver injury including viral etiologies, drug reaction to anabolic steroids, or other cause such as Aurelio's disease, multiple labs pending. INR stable on admission, with no evidence of encephalopathy Continue supportive care Will add Hydroxyzine HS, and Questran 4 g PO TID for pruritus Will follow clinical course and make further recommendations as needed. Subjective Mr. Naik continues to complain of jaundice and severe pruritus. He states that since last evening he has had significant symptoms of pruritus, and "scrathed my legs so much they are bleeding." He states that overall he is feel ing better today. He denies any abdominal pain, fevers, chills, nausea, vomiting, hematemesis, melena, or hematochezia. He states that he is tolerating his diet. He has no further complaints. Review of Systems Review of Systems: All systems reviewed & are unremarkable except as noted in HPI & below Physical Exam Constitutional: well developed; no altered mental status Eyes: + scleral abnormality (icterus) and EOM intact bilaterally ENMT: external ear and nose normal, oropharynx normal Neck: trachea midline, no thyromegaly Respiratory: normal respiratory effort, lungs clear to auscultation Cardiovascular: RRR, no murmur, no edema Gastrointestinal (Abdomen): normal bowel sounds, soft, nontender, no hepatosplenomegaly Musculoskeletal: no cyanosis or clubbing, extremities motor strength 5/5 Skin: + excoriations (Bilateral lower extermities) Results & Data Vital Signs (Past 12 Hours) Vital Signs Temp Pulse Resp BP Pulse Ox 05/12/19 07:47 37.0 C 58 L 16 102/63 94 PG Care Time/CCT Total # of Minutes Spent Total Time Spent with Patient: Total time spent is greater than 50% in coordination of care (as documented) at patient's floor/unit and/or counseling patient: (1) Hepatitis C Hepatic coma status: without hepatic coma Viral hepatitis chronicity: chronic Qualified Code(s): B18.2 - Chronic viral hepatitis C
--- NOTE | 2019-05-12 15:10 | Hospitalist Progress Note ---
Date of Service May 12, 2019 Assessment & Plan (1) Transaminitis: (2) Jaundice: (3) Hepatitis C: Per admitting service notes -Patient presenting from home for evaluation of worsening painless jaundice -In the ED, found to have transaminitis with total bili 15.8, AST 457, ALT 287, alk phos 140 -History of hepatitis C diagnosed ~15 years ago, declined treatment -Denies alcohol use, no heavy Tylenol use; up until 1 year ago, was using testosterone cypionate injections which could have potential liver toxicity side effect; currently taking Moringa leaf and carbon 60 supplements -these do not appear to have any liver side effects listed -Liver ultrasound obtained, no signs of cirrhosis however multiple gallstones noted within the gallbladder 05/11/2019 ERCP canceled as patient had eaten earlier today Total bilirubin slightly decreased from 15-13 AST ALT about the same, alk phos normal Elevated bilirubin and felt to be secondary to exogenous testosterone Will continue to monitor trend, if without improvement, plan for ERCP next week Ordered Zyrtec for pruritus Continue to monitor closely 05/12/2019 Total bilirubin and LFTs slightly increased today Add cholestyramine for pruritus Continue to monitor closely next (4) History of drug abuse in remission: -Continue Suboxone (5) Anxiety: -Continue clonazepam (6) DVT prophylaxis: -SCDs, patient ambulating Case discussed with patient in detail and at length All questions answered, patient is understanding, agreeable, comfortable plan of care Subjective Follow-up for jaundice, transaminitis Seen resting in bed, comfortable, not in distress Appears less weak today States feels okay overall Main complaint is generalized pruritus No abdominal pain, no nausea vomiting Negative x3 No other symptoms Review of Systems Review of Systems: All systems reviewed & are unremarkable except as noted in HPI & below Physical Exam Physical Exam: General- oriented x 3, not in distress, speaks in sentences with no effort or accessory muscle use Eyes-positive icterus Neck- no JVD Lungs- clear breath sounds, no crackles, no wheezing bilaterally Heart- normal rate, regular rhythm; no murmurs Abdomen- normal bowel sounds, nondistended, soft, nontender Extremities-positive jaundice Positive excoriations bilateral lower legs No pretibial edema, no calf tenderness Neuro- alert, oriented x 3; no gross focal neurologic deficits Skin- warm & dry Results & Data Vital Signs (Past 12 Hours) Vital Signs Temp Pulse Resp BP Pulse Ox 05/12/19 15:09 36.9 C 61 17 119/76 95 05/12/19 07:47 37.0 C 58 L 16 102/63 94 Laboratory Results Laboratory Results - last 24 hr 05/12/19 09:34 Sodium 140 Potassium 3.6 Chloride 107 Carbon Dioxide 29 Anion Gap 5.0 BUN 14 Creatinine 0.67 Est Cr Clr Drug Dosing 120.9 Est GFR ( Amer) 137.4 Est GFR (Non-Af Amer) 118.5 BUN/Creatinine Ratio 20.9 H Glucose 127 H Calcium 8.6 Total Bilirubin 14.5 H Direct Bilirubin 12.1 H AST 450 H ALT 316 H Alkaline Phosphatase 126 H Total Protein 5.9 L Albumin 2.7 L (1) Hepatitis C Hepatic coma status: without hepatic coma Viral hepatitis chronicity: chronic Qualified Code(s): B18.2 - Chronic viral hepatitis C
[2019-05-12] MEDS: CHOLESTYRAMINE LIGHT 4 GM PKT PO SCH ×2 (15:35→21:31)
[2019-05-12] MEDS: EUCERIN CR 120 GM JAR EXT SCH (17:24)
[2019-05-12] MEDS ORDERED: CHOLESTYRAMINE LIGHT 4 GM PKT PO SCH ×2 (21:00→22:00)
[2019-05-13 06:58] LABS: Albumin Level 2.5 gm/dl (3.4-5.0); BUN Creatinine Ratio 24.7 (10-20); Bilirubin,Total 15.1 mg/dl (0.2-1); Calcium 8.6 mg/dl (8.5-10.1); Creatinine Clr Calc Pharmacy 124.6 ml/min; Est GFR (African American) 139.1; Potassium 3.9 mmol/L (3.5-5.1); Total Protein 5.9 gm/dl (6.4-8.2)
[2019-05-13] MEDS: SODIUM CHLORIDE 0.9% 1000ML 1,000 ML IV SCH ×2 (07:42→17:00)
[2019-05-13] MEDS: EUCERIN CR 120 GM JAR EXT SCH ×2 (07:42→19:29)
[2019-05-13] MEDS: CETIRIZINE HCL 10 MG TABLET PO PRN (07:43)
[2019-05-13] MEDS: BUPRENORPHINE/NALOXONE 8/2 MG TAB SL SCH ×2 (07:43→20:39)
[2019-05-13] MEDS: CHOLESTYRAMINE LIGHT 4 GM PKT PO SCH ×2 (10:18→14:41)
[2019-05-13 11:14] LABS: Hepatitis C Vira RNA (Log) PCR 7.17 Log IU/mL (NOT DETECTED)
--- NOTE | 2019-05-13 13:14 | Gastroenterology Progress Note ---
Date of Service May 13, 2019 Assessment & Plan (1) Hepatitis C: (2) Jaundice: (3) Drug induced liver disease: Continue current therapy and supportive care Less than 24 hours since Questran and Hydroxyzine started Could consider increasing Questran or adding Rifampin if pruritus continues Subjective Still with significant pruritus. He denies any fevers, chills, nausea, vomiting, diarrhea, hematemesis, melena or hematochezia. Tolerating PO intake. Physical Exam Constitutional: + ill appearing Eyes: + scleral abnormality icterus Respiratory: normal respiratory effort, lungs clear to auscultation Cardiovascular: RRR, no murmur, no edema Gastrointestinal (Abdomen): normal bowel sounds, soft, nontender, no hepatosplenomegaly Skin: + jaundice Psychiatric: A+Ox3, euthymic affect Results & Data Vital Signs (Past 12 Hours) Vital Signs Temp Pulse Resp BP Pulse Ox 05/13/19 07:13 36.8 C 57 L 16 118/72 94 PG Care Time/CCT Total # of Minutes Spent Total Time Spent with Patient: Total time spent is greater than 50% in coordination of care (as documented) at patient's floor/unit and/or counseling patient: (1) Hepatitis C Hepatic coma status: without hepatic coma Viral hepatitis chronicity: chronic Qualified Code(s): B18.2 - Chronic viral hepatitis C
[2019-05-13] MEDS: FAMOTIDINE 10 MG TABLET PO PRN (17:00)
--- NOTE | 2019-05-13 19:03 | Hospitalist Progress Note ---
Date of Service May 13, 2019 Assessment & Plan (1) Transaminitis: (2) Jaundice: (3) Hepatitis C: Per admitting service notes -Patient presenting from home for evaluation of worsening painless jaundice -In the ED, found to have transaminitis with total bili 15.8, AST 457, ALT 287, alk phos 140 -History of hepatitis C diagnosed ~15 years ago, declined treatment -Denies alcohol use, no heavy Tylenol use; up until 1 year ago, was using testosterone cypionate injections which could have potential liver toxicity side effect; currently taking Moringa leaf and carbon 60 supplements -these do not appear to have any liver side effects listed -Liver ultrasound obtained, no signs of cirrhosis however multiple gallstones noted within the gallbladder 05/11/2019 ERCP canceled as patient had eaten earlier today Total bilirubin slightly decreased from 15-13 AST ALT about the same, alk phos normal Elevated bilirubin and felt to be secondary to exogenous testosterone Will continue to monitor trend, if without improvement, plan for ERCP next week Ordered Zyrtec for pruritus Continue to monitor closely 05/12/2019 Total bilirubin and LFTs slightly increased today Add cholestyramine for pruritus Continue to monitor closely next 05/13/2019 Total bilirubin and LFTs remain elevated We will keep n.p.o. 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 (5) Anxiety: -Continue clonazepam (6) DVT prophylaxis: -SCDs, patient ambulating Case discussed with patient in detail and at length All questions answered, patient is understanding, agreeable, comfortable plan of care Subjective Follow-up for elevated LFTs Seen sitting up in bed, comfortable, not in distress States he feels fine today except for generalized itching No nausea, no abdominal pain, tolerating diet well No other symptoms Review of Systems Review of Systems: All systems reviewed & are unremarkable except as noted in HPI & below Physical Exam Physical Exam: General- oriented x 3, not in distress, speaks in sentences with no effort or accessory muscle use Eyes-positive icterus Neck- no JVD Lungs- clear breath sounds bilaterally Heart- normal rate, regular rhythm; no murmurs Abdomen- normal bowel sounds, nondistended, soft, nontender Extremities- no pretibial edema, no calf tenderness Positive jaundice Neuro- alert, oriented x 3; no gross focal neurologic deficits Skin- warm & dry Results & Data Vital Signs (Past 12 Hours) Vital Signs Temp Pulse Resp BP Pulse Ox 05/13/19 14:52 36.5 C 60 17 126/78 95 05/13/19 07:13 36.8 C 57 L 16 118/72 94 Laboratory Results Laboratory Results - last 24 hr 05/10/19 05/13/19 15:55 05:34 Sodium 139 Potassium 3.9 Chloride 108 H Carbon Dioxide 27 Anion Gap 4.0 BUN 16 Creatinine 0.65 Est Cr Clr Drug Dosing 124.6 Est GFR ( Amer) 139.1 Est GFR (Non-Af Amer) 120.0 BUN/Creatinine Ratio 24.7 H Glucose 98 Calcium 8.6 Total Bilirubin 15.1 H Direct Bilirubin 12.0 H AST 461 H ALT 336 H Alkaline Phosphatase 119 H Total Protein 5.9 L Albumin 2.5 L HCV RNA (PCR) IUs/ml [id number] H HCV RNA PCR log IUs/ml 7.17 H (1) Hepatitis C Hepatic coma status: without hepatic coma Viral hepatitis chronicity: chronic Qualified Code(s): B18.2 - Chronic viral hepatitis C
[2019-05-14] MEDS: D5W AND NSS 1,000 ML IV SCH ×2 (00:05→12:03)
[2019-05-14] MEDS: CHOLESTYRAMINE LIGHT 4 GM PKT PO SCH ×6 (00:05→23:34)
[2019-05-14] MEDS: clonazePAM 1 MG TAB PO PRN (00:12)
[2019-05-14 06:57] LABS: Albumin Level 2.8 gm/dl (3.4-5.0); BUN Creatinine Ratio 25.8 (10-20); Bilirubin,Total 16.3 mg/dl (0.2-1); Calcium 9.3 mg/dl (8.5-10.1); Creatinine Clr Calc Pharmacy 120.9 ml/min; Est GFR (African American) 137.4; Est GFR (Non-African American) 118.5; Potassium 3.9 mmol/L (3.5-5.1); Total Protein 6.2 gm/dl (6.4-8.2)
[2019-05-14] MEDS: EUCERIN CR 120 GM JAR EXT SCH ×2 (07:31→23:36)
[2019-05-14 08:10] LABS: Bilirubin Direct 13.3 mg/dl (0-0.2)
[2019-05-14] MEDS ORDERED: AcetylCYSTEINE IV 21 HR REGIMEN (>40KG) IV STA (11:26)
[2019-05-14 11:55] LABS: INR 1.1 (0.9-1.1); Prothrombin Time 10.9 Seconds (9.0-12.0)
--- NOTE | 2019-05-14 12:45 | Gastroenterology Progress Note ---
Date of Service May 14, 2019 Assessment & Plan (1) Jaundice: (2) Hepatitis C: (3) Elevated LFTs: Pt is a 44 y/o male followed for painless jaundice, progressively worse LFTs. Hx of HCV + (RNA >14 mill), hx of IVDU >10yrs ago. Hx of recent uses of multiple herbal supplements and self injecting steroids. 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 Autoimmune serologies, EBV/CMV/Parvo viruses pending. Liver u/s and MRCP showed normal liver, + gallstones but normal caliber bile ducts - Trend LFTs - Daily monitoring of mental status coag function, renal functions. - N-Acetylcysteine protocol today for suspected DILI - He was scheduled for EUS last week but unfortunately ate chips on day of procedure thus cancelled. He needs liver bx, preferable EUS guided however we don't have compatible needle size in this facility for EUS guided liver biopsy to be performed here. Will discuss with my attending physician for possible transfer to different facility such as [facility] for EUS guided liver bx vs obtaining Abdominal u/s guided liver bx here. Attg add: I interviewed and examined pt, reviewed chart and labs. Pt feeling well, without evidence of confusion. His itching is improved. His exam is unremarkable - no volume overload. His transaminases and bilirubin are both rising. 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 However, given labs today, would recommend transfer for liver bx and transplant eval. Subjective Pt reports still having itching, worse as the day progresses. Hydroxyzine is helping his report. He denies any fever, chills, abd pain, n/v. Bowels moved today, dark stools but not black or tarry. Review of Systems Review of Systems: All systems reviewed & are unremarkable except as noted in HPI & below Physical Exam Constitutional: + ill appearing, well groomed, cooperative and comfortable Eyes: + scleral abnormality (icteric sclera) and EOM intact bilaterally ENMT: external ear and nose normal, oropharynx normal Respiratory: normal respiratory effort, lungs clear to auscultation Cardiovascular: RRR, no murmur, no edema Gastrointestinal (Abdomen): normal bowel sounds, soft, nontender, no hepatosplenomegaly Skin: no rashes, warm and dry + jaundice Neurologic: Motor/Sensory: no asterixis slow mentation but A&Ox3, answering questions appropriately Psychiatric: A+Ox3, euthymic affect Lymphatic: + lymphedema R arm swelling, suspect IV infiltration Results & Data Vital Signs (Past 12 Hours) Vital Signs Temp Pulse Resp BP Pulse Ox 05/14/19 07:30 36.8 C 59 L 18 107/70 98 (1) Hepatitis C Hepatic coma status: without hepatic coma Viral hepatitis chronicity: chronic Qualified Code(s): B18.2 - Chronic viral hepatitis C
--- NOTE | 2019-05-14 20:16 | Hospitalist Progress Note ---
Date of Service May 14, 2019 Assessment & Plan (1) Transaminitis: (2) Jaundice: (3) Hepatitis C: Per admitting service notes -Patient presenting from home for evaluation of worsening painless jaundice -In the ED, found to have transaminitis with total bili 15.8, AST 457, ALT 287, alk phos 140 -History of hepatitis C diagnosed ~15 years ago, declined treatment -Denies alcohol use, no heavy Tylenol use; up until 1 year ago, was using testosterone cypionate injections which could have potential liver toxicity side effect; currently taking Moringa leaf and carbon 60 supplements -these do not appear to have any liver side effects listed Liver u/s and MRCP showed normal liver, + gallstones but normal caliber bile ducts Evaluated by GI service Plan was to perform an endoscopic ultrasound, but patient unfortunately was not able to maintain n.p.o. 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 Desai and collection specialist Dr. 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 (5) Anxiety: -Continue clonazepam (6) DVT prophylaxis: -SCDs, patient ambulating Case discussed with patient in detail and at length All questions answered, patient is understanding, agreeable, comfortable plan of care Subjective Follow-up for jaundice, elevated liver enzymes Patient seen resting in bed, comfortable, not in distress Denies abdominal pain, nausea, dizziness, headache Tolerating diet well No confusion No other symptoms Review of Systems Review of Systems: All systems reviewed & are unremarkable except as noted in HPI & below Physical Exam Physical Exam: General- oriented x 3, not in distress, speaks in sentences wit h no effort or accessory muscle use Eyes-positive icterus Neck- no JVD Lungs- clear breath sounds bilaterally, no wheezing or crackles Heart- normal rate, regular rhythm; no murmurs Abdomen- normal bowel sounds, nondistended, soft, nontender Extremities- no pretibial edema, no calf tenderness (+) jaundice Neuro- alert, oriented x 3; no gross focal neurologic deficits Skin- warm & dry Results & Data Vital Signs (Past 12 Hours) Vital Signs Temp Pulse Resp BP Pulse Ox 05/14/19 17:38 58 L 05/14/19 16:32 37.0 C 17 125/79 97 (1) Hepatitis C Hepatic coma status: without hepatic coma Viral hepatitis chronicity: chronic Qualified Code(s): B18.2 - Chronic viral hepatitis C
--- NOTE | 2019-05-14 20:22 | Discharge Summary ---
Date of Service May 14, 2019 Admission HPI Per Admitting Provider 44-year-old male who presents the ED for evaluation of jaundice and itching. Patient reports being diagnosed with hepatitis C about 15 years ago however has never received treatment. Former history of heroin use (~ 12 years ago), now managed on Suboxone. Patient reports that 1 month ago a friend of his told him that he did not look well and appeared yellow. Patient reports the yellowing and skin itchiness has been progressively getting worse. He notes a 20 pound unintentional weight loss over the past 2 months. His stools have been white in color and urine has been dark, tea colored. Patient denies abdominal pain, nausea, vomiting, diarrhea. He does report increasing fatigue. Up until a year ago, patient was taking testosterone cypionate injections. Patient also admits to taking moringa leaf, vitamin C, and carbon 60 supplements. Patient denies chest pain shortness of breath. No lightheadedness, dizziness, diaphoresis, syncopal events. Denies fevers and chills. No urinary symptoms. In the ED, patient is found to have transaminitis with total bili 15.8, AST 457, ALT 287, alk phos 140. He is hemodynamically stable. Patient was given famotidine and doxepin. Admission Exam Per Admitting Provider Constitutional: + thin Chronically ill-appearing with bitemporal wasting Eyes: PERRL; no conjunctival abnormality and sclerae not anicteric ENMT: external ear and nose normal, oropharynx normal Respiratory: normal respiratory effort, lungs clear to auscultation Cardiovascular: Rate/Rhythm: regular rate and regular rhythm Vessels: normal peripheral pulses Extremities: no edema Gastrointestinal (Abdomen): normal bowel sounds, soft, nontender, no hepatosplenomegaly Musculoskeletal: no cyanosis or clubbing, extremities motor strength 5/5 Skin: no rashes, warm and dry + jaundice Trauma: + abrasion (Various scattered superficial abrasions noted over body from persistent itching) Neurologic: PERRL, EOMI, accommodation nl, no face palsy, no dysarthria Psychiatric: A+Ox3, euthymic affect Principal Diagnosis Jaundice possible secondary to anabolic steroid induced cholestatic hepatitis Discharge Exam General- oriented x 3, not in distress, speaks in sentences with no effort or accessory muscle use Eyes-positive icterus Neck- no JVD Lungs- clear breath sounds bilaterally, no wheezing or crackles Heart- normal rate, regular rhythm; no murmurs Abdomen- normal bowel sounds, nondistended, soft, nontender Extremities- no pretibial edema, no calf tenderness (+) jaundice Neuro- alert, oriented x 3; no gross focal neurologic deficits Skin- warm & dry Discharge Data Allergies Allergy/AdvReac Type Severity Reaction Status Date / Time No Known Allergies Allergy Verified 05/10/19 15:28 Consultations 05/10/19 17:13 ED Decision to Admit Stat 05/10/19 21:02 Consult Gastroenterology Routine Procedures Performed Operation Date: 05/11/19 12:50 <No data on this case meets the specified criteria> Ordered Studies 05/10/19 17:00 US liver Stat CLINICAL HISTORY: t bili elevated abnormal liver function tests COMPARISON STUDY: No previous studies for comparison. FINDINGS: Several gallstones are identified within the gallbladder lumen. Mild gallbladder wall thickening at 4 mm. Common bile duct measures 5 mm. Liver is uniform. Pancreas and right kidney are unremarkable. No evidence for renal hydronephrosis. IMPRESSION: Multiple gallstones in a gallbladder with a thickened wall. Normal caliber bile ducts. 05/10/19 18:48 MR abdomen wo/w con Urgent CLINICAL HISTORY: Elevated liver f factors. Abnormal liver function tests. COMPARISON STUDY: Liver ultrasound same date. TECHNIQUE: MRI of the abdomen is performed transverse T1 and T2-weighted sequences in the axial and coronal planes. Contrast enhanced sequences were acquired following the IV administration of 6 cc of Urovist. FINDINGS: Lower chest: No pleural effusion is identified. The heart is normal in size. Liver: The liver is uniform. No hepatic ductal distention. Gallbladder: Gallstone filled. Minimal pericholecystic edema if any. Normal caliber bile ducts. No abnormal postcontrast enhancement. No significant space-occupying lesions. Spleen: Normal in size and signal intensity. Pancreas: Unremarkable. Adrenal glands: Unremarkable. Kidneys: The kidneys are normal in size and without hydronephrosis. The kidneys enhance and excrete symmetrically. Bowel: Mild nonspecific enteritis. This may be reactive. No evidence for obstructive pattern. Peritoneum: Several small reactive mesenteric nodes Lymphadenopathy: Several nonspecific para-aortic as well as retroperitoneal nodes Skeletal structures: Visualized skeletal structures times are normal marrow signal intensity. IMPRESSION: 1. Unremarkable liver and spleen. 2. No abnormal postcontrast enhancement. 3. Gallstone filled gallbladder with a trace of pericholecystic edema. 4. Mild small bowel enteritis. 5. Several small reactive mesenteric as well as retroperitoneal/para-aortic nodes. 6. Nonobstructive bowel pattern. Hospital Course (1) Transaminitis: (2) Jaundice: (3) Hepatitis C: Per admitting service notes -Patient presenting from home for evaluation of worsening painless jaundice -In the ED, found to have transaminitis with total bili 15.8, AST 457, ALT 287, alk phos 140 -History of hepatitis C diagnosed ~15 years ago, declined treatment -Denies alcohol use, no heavy Tylenol use; up until 1 year ago, was using testosterone cypionate injections which could have potential liver toxicity side effect; currently taking Moringa leaf and carbon 60 supplements -these do not appear to have any liver side effects listed Liver u/s and MRCP showed normal liver, + gallstones but normal caliber bile ducts Evaluated by GI service Plan was to perform an endoscopic ultrasound, but patient unfortunately was not able to maintain n.p.o. prior to procedure Patient was observed throughout the weekend, however bilirubin and LFTs continue to trend up Total bilirubin increased from 13-16, AST increased from 4 57-6 59, ALT increased from 316-4 52, alk phos remains around 120, INR 1.1 Viral serologies pending including hepatitis panel, EBV/CMV/parvo viruses As per GI: Patient found to have anabolic steroid induced cholestatic hepatitis Recommend transfer to [facility] for liver biopsy and transplant evaluation Discussed with [facility] hospitalist Dr. Desai and supervisor air conditioning installer Dr. 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 (5) Anxiety: -Continue clonazepam (6) DVT prophylaxis: -SCDs, patient ambulating Case discussed with patient in detail and at length All questions answered, patient is understanding, agreeable, comfortable plan of care Total Time Total Time Spent Total Time Spent (In Minutes): 50 minutes Discharge Plan Discharge Items Patient Disposition: Transfer Acute Care Hospital Reason For Visit: JAUNDICE Discharge Diagnosis: Jaundice, possible anabolic steroid induced cholestatic hepatitis Activity: Resume your previous activity Non-emergency contact: Primary Care Provider Call non-emergency contact if: you have any medication questions and your symptoms worsen Follow-up/Referrals: Jean Carlos Valencia MD [Primary Care Provider] - Diet: Regular Addtl Attending Provider Instructions: Please refer to accompanying hospital discharge summary for full details. Pending Studies at Discharge: Yes Studies:: Viral serologies, autoimmune serologies obtained from [facility] Stand-Alone Forms: My [facility] Skilled Items Patient informed of condition?: Yes DNR: No Discharge Level of Care: Other Communicable Disease: No Discharge Prognosis: Stable Lines: None Urinary Catheter: No Medications and DC Order Prescriptions: New famotidine [Acid [facility] (famotidine)] 10 mg Tablet 10 mg PO BID PRN (Reason: reflux) Qty: 10 RF: 0 cetirizine 10 mg Tablet 10 mg PO DAILY PRN (Reason: allergy symptoms) Qty: 10 RF: 0 hydroxyzine HCl 25 mg Tablet 25 mg PO HS PRN (Reason: itching) Qty: 10 RF: 0 Dermacerin Cream 1 applic EXT BID Qty: 2568 RF: 0 buprenorphine-naloxone 8-2 mg Tablet, Sublingual 1 tab sublingual HS Qty: 1 RF: 0 Cholestyramine Light 4 gram Powder In Packet 4 g PO TID@1000,1500,2200 Qty: 10 RF: 0 Continued clonazepam 1 mg Tablet 1 mg PO TID PRN (Reason: Itchiness/Anxiety) RF: 0 Discontinued buprenorphine-naloxone 8-2 mg tablet, sublingual 1 tab SUBLINGUAL BID RF: 0 Discharge Orders: Discharge Order (Routine); Ordered 05/14/19 Ordered By: Jordan Coleman Admission Data Admit Date/Time: 05/10/19 18:13 Attending Provider: Jordan Coleman Admit Provider: Georges Roberts Primary Care Provider: Jean Carlos Valencia Other Providers: Georges Roberts ; Amador Hampton
[2019-05-14] MEDS ORDERED: BUPRENORPHINE/NALOXONE 8/2 MG TAB SL SCH (21:00)
[2019-05-15] MEDS: EUCERIN CR 120 GM JAR EXT SCH (03:53)
[2019-05-15 07:03] LABS: Albumin Level 2.7 gm/dl (3.4-5.0); Calcium 9.7 mg/dl (8.5-10.1); Creatinine Clr Calc Pharmacy 120.9 ml/min; Est GFR (African American) 137.4; Est GFR (Non-African American) 118.5; Potassium 3.6 mmol/L (3.5-5.1)
[2019-05-15 07:08] LABS: Total Protein 6.5 gm/dl (6.4-8.2)
[2019-05-15 08:13] LABS: Bilirubin Direct 13.7 mg/dl (0-0.2)
[2019-05-15] MEDS: CHOLESTYRAMINE LIGHT 4 GM PKT PO SCH ×2 (09:26→14:09)
--- NOTE | 2019-05-15 11:33 | Gastroenterology Progress Note ---
Date of Service May 15, 2019 Assessment & Plan (1) Jaundice: (2) Hepatitis C: (3) Elevated LFTs: Pt is a 44 y/o male followed for painless jaundice, progressively worse LFTs. Hx of HCV + (RNA >14 mill), hx of IVDU >10yrs ago. Hx of recent uses of multiple herbal supplements and self injecting steroids. 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 Autoimmune serologies, EBV/CMV/Parvo viruses pending. Liver u/s and MRCP showed normal liver, + gallstones but normal caliber bile ducts. - Transfer to [facility] when bed is available for liver bx & liver transplant eval. - Trend LFTs - Daily monitoring of mental status coag function, renal functions. - N-Acetylcysteine protocol starrted suspected DILI Subjective Pt awaiting bed availability at [facility] for transfer. He is still c/o itching, denies any abd pain, n/v LFTs increased again today Review of Systems Review of Systems: All systems reviewed & are unremarkable except as noted in HPI & below Physical Exam Constitutional: + ill appearing, well groomed, cooperative and comfortable Eyes: + scleral abnormality (icteric sclera) and EOM intact bilaterally ENMT: external ear and nose normal, oropharynx normal Respiratory: normal respiratory effort, lungs clear to auscultation Cardiovascular: RRR, no murmur, no edema Gastrointestinal (Abdomen): normal bowel sounds, soft, nontender, no hepatosplenomegaly Skin: no rashes, warm and dry + jaundice Neurologic: Motor/Sensory: no asterixis Psychiatric: A+Ox3, euthymic affect Lymphatic: + lymphedema Results & Data Vital Signs (Past 12 Hours) Vital Signs Temp Pulse Resp BP Pulse Ox 05/15/19 07:33 36.7 C 61 16 90/60 L 94 (1) Hepatitis C Hepatic coma status: without hepatic coma Viral hepatitis chronicity: chronic Qualified Code(s): B18.2 - Chronic viral hepatitis C
[2019-05-15 12:21] LABS: INR 1.1 (0.9-1.1)
[2019-05-15] MEDS: FAMOTIDINE 10 MG TABLET PO PRN (15:57)
[2019-05-16 23:40] LABS: Anti Nuclear Antibody Screen NEGATIVE (NEGATIVE); CMV IgM Antibody <30.00 AU/mL; Hepatitis A Antibody IgM NON-REACTIVE (NON-REACTIVE); Hepatitis B Core Antibody IgM NON-REACTIVE (NON-REACTIVE); Hepatitis C Viral RNA by PCR 15900000 IU/mL (NOT DETECTED); Parvovirus IgG 5.7 (<0.9); Parvovirus IgM 0.1 (<0.9); Smooth Muscle Antibody POSITIVE (NEGATIVE)
== END 2019-05-15 16:02 | disposition short-term general hospital (02) | DRG 442 ==
LOC: ED 14:55 → 3N 18:13 → SUATTDRO 18:13 → 3N 20:27